=== PATIENT | female | born 1965 | race Caucasian/White ===

== ENCOUNTER 2017-04-11 01:36 | Emergency (ER) | payer BC ==
[2017-04-11] MEDS ORDERED: diphenhydrAMINE HCL 50 MG/ML VIAL IM ONE (02:23)
--- NOTE | 2017-04-11 02:23 | ERNOTE ---
Psychological HPI - Date Date of Service: 04/11/17 - General Chief Complaint: Anxiety Source: Reports: patient, family Exam Limitations: Reports: no limitations - Immun/Allergies/Home Medications Allergies/Adverse Reactions: Allergies Penicillins Allergy (Intermediate, Verified 05/25/16 09:47) Other topiramate Adverse Reaction (Mild, Verified 05/25/16 09:47) dizziness, fatigue Home Medications: HOME MEDICATIONS Acetaminophen [Tylenol] 650 mg PO PRN PRN 12/05/15 [Last Taken Unknown] Cholecalciferol (Vitamin D3) [Vitamin D-3] 1 unit PO DAILY 12/05/15 [Last Taken Unknown] Duloxetine HCl [Cymbalta] 60 mg PO BID 12/05/15 [Last Taken Unknown] Gabapentin 900 mg PO TID 12/05/15 [Last Taken Unknown] Levothyroxine Sodium [Synthroid] 50 mcg PO DAILY 12/05/15 [Last Taken Unknown] Omeprazole [Prilosec] 20 mg PO DAILY 12/05/15 [Last Taken Unknown] Simvastatin [Zocor] 40 mg PO HS 12/05/15 [Last Taken Unknown] glipiZIDE [Glipizide] 10 mg PO BID 12/05/15 [Last Taken Unknown] metFORMIN HCL [Glucophage] 1,000 mg PO BID 12/05/15 [Last Taken Unknown] Cyanocobalamin (Vitamin B-12) [B-12] 1,000 mcg PO DAILY 05/06/16 [Last Taken Unknown] Gluc Mistry/Chondro Mistry A/Vit C/Mn [Glucosamine Chondroitin Tab] 1 each PO Q2D [Last Taken Unknown] sitaGLIPtin PHOSPHATE [Januvia] 100 mg PO DAILY 05/06/16 [Last Taken Unknown] Meloxicam [Mobic] 15 mg PO DAILY 04/11/17 [Last Taken Unknown] Naltrexone HCl [ReVia] 1.5 mg PO DAILY 04/11/17 [Last Taken Unknown] - History of Present Illness Narrative: STATES SHE HAD A HEADACHE EARLIER AND THEN DEVELOPED AN ANXIETY ATTACK. SHE HAS A HX OF BOTH THOUGH NOT SEEN HERE RECENTLY FOR THESE PROBLEMS. NO HEAD TRAUMA. NO TRAUMA. SAYS IT STARTED AFTER GETTING READY FOR BED THOUGH HAD SOME HEADACHE TO BACK OF HEAD EARLIER. WENT TO BED ABOUT 2300 AND SHE CAME INTO HIM ABOUT 0130 AND SAID HER H.A. WAS WORSE " NOW ALL OVER HER HEAD FROM BACK TO FRONT". NO VOMITING. IS SORE TO OCCIPITAL AREA. SHE HAS NOT TAKEN ANYTHING FOR HER H.A. DENIES ANY REASON TO BE ANXIOUS THAT SHE IS AWARE OF. Time Seen by Provider: 04/11/17 02:08 Review of Systems - Review of Systems Constitutional: Present: See HPI EYE: Present: no symptoms reported ENT: Present: no symptoms reported Respiratory: Present: no symptoms reported Cardiology: Present: no symptoms reported Gastrointestinal/Abdominal: Present: no symptoms reported Genitourinary: Present: no symptoms reported Musculoskeletal: Present: See HPI, neck pain - POSTERIOR OCCIPITAL TENDERNESS. Skin: Present: no symptoms reported Neurological: Present: See HPI, anxiety, headache Hematologic/Lymphatic: Present: no symptoms reported Psych: Present: depressed All Other Systems: All systems neg except as marked - Patient's Past Medical History Patient History - Medical: Anxiety, Chronic Pain, Diabetes Type 2, Fibromyalgia , GERD, Hypothyroidism, Migraines, Osteoarthritis, Other Patient History - Cardiac/Respiratory: Hyperlipidemia Patient History - Cancer: No Hx of Cancer Patient History - Surgical Procedures: Appendectomy, Cholecystectomy, , Tubal Ligation, T & A Patient History - Other: None LMP (Calendar): 01/15/16 - Family History Father Family History - Medical: , No pertinent hx Family History - Cardiac/Respiratory: COPD Mother Family History - Medical: , Diabetes Type 2, Other Family History - Cardiac/Respiratory: Hyperlipidemia Brother Family History - Medical: No pertinent hx Family History - Cardiac/Respiratory: No pertinent hx - Social History Living Situations: spouse Abuse History: No History of abuse Psych History: Hx of Anxiety Smoking Status: Former smoker Alcohol Use: rarely Drug Use: none - Immunizations Immunizations Up to Date: Yes Hx Pneumococcal Vaccination: No History of Influenza Vaccine: Yes Physical Exam - Physical Exam General Appearance: Present: wd/wn, alert, anxious Eye Exam: Normal inspection: bilateral, PERRL: bilateral, EOMI: bilateral Ears, Nose, Throat: Present: normal ENT inspection Neck: Present: normal inspection, other - TENDERNESS TO PALPATION TO SUPERIOR POSTERIOR NECK TO LEFT > RIGHT. 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 . Absent: facial droop, motor weakness, disoriented to person, disoriented to time, disoriented to place, disoriented to situation DTR: N=norm/NB=norm/brisk/A=abs/DD=dull/dimin/HC=hyperactive: Tricep (R): Normal , Tricep (L): Normal, Knee (R): Normal, Knee (L): Normal Skin Exam: Present: normal color ED Progress - Vital Signs Vital Signs: Vital Signs 04/11/17 01:39 Temperature 36.9 C Pulse Rate 96 Respiratory 18 Rate Blood Pressure 124/78 O2 Sat by Pulse 98 Oximetry - Progress/Reassessment Chief Complaint: Anxiety Departure Clinical Impression: Anxiety Headache Qualifiers: Headache type: tension-type Headache chronicity pattern: acute headache Intractability: not intractable Qualified Code(s): G44.209 - Tension-type headache, unspecified, not intractable - Departure Disposition: Home self-care Instructions: Panic Attacks, [id number], Tension Headache, [id number] Additional Instructions: REST. TAKE YOUR MEDS DIRECTED. RECHECK WITH YOUR FAMILY TOMORROW IF NOT IMPROVING. Referrals: Felix Manzo DO [Primary Care Provider] -
--- OUTSIDE RECORDS SUMMARY | 2017-04-11 02:23 | XMS REPORT | Summary of Care ---
:1965 Author Organization [facility] Address [address] [place] [address] Care Team Providers Name Role Phone Manzo Felix Thrasher Primary Care Physician Encounter Date(s): 12/08/16 - 12/08/16 [facility] [address] [facility] [place], [place] [address] [place] Discharge Diagnosis: Cubital tunnel syndrome, bilateral Discharge Diagnosis: Bilateral carpal tunnel syndrome Discharge Disposition: 01 Discharged to Home or Self Care Attending Physician: Byron Gimenez MD Referring Physician: Byron Gimenez MD Vital Signs Most recent to oldest [Reference Range]: 1 Peripheral Pulse Rate [60-100 bpm] 89 bpm (12/08/16 2:06 PM) Blood Pressure [90-130/60-90 mmHg] 121/77mmHg (12/08/16 2:06 PM) Mean Arterial Pressure, Cuff 92 mmHg (12/08/16 2:06 PM) Most recent to oldest [Reference Range]: 1 Height/Length Measured 158 cm (12/08/16 2:06 PM) Weight Dosing 122.50 kg1 (12/08/16 2:08 PM) Weight Measured 122.5 kg (12/08/16 2:06 PM) BSA Measured 2.18 m2 (12/08/16 2:06 PM) Body Mass Index Measured 49.07 kg/m2 (12/08/16 2:06 PM) 1Result Comment: This result was because the dosing weight was either not entered or it is>30 days old. This result is based off: Weight Measured December 08, 2016 14:06:00 WHIZZER HAND by Becky J Familia, ELDER ASSISTANT Problem List Condition Effective Dates Status Health Status Informant Cubital tunnel syndrome, Active bilateral(Confirmed) Bilateral carpal tunnel Active syndrome(Confirmed) Fibromyalgia(Confirmed) Active Allergies, Adverse Reactions, Alerts Substance Reaction Severity Status penicillin Rash Moderate Active topiramate Nausea Moderate Active Dizzy Fatigue Medications DULoxetine 60 mg oral delayed release capsule 1 cap(s), Oral, BID, do not crush or chew, # 30 cap(s), 0 Refill(s), Start Date : 10/28/16 8:39:00 WHIZZER HAND Special Instructions: do not crush or chew Start Date: 10/28/16 Status: Orderedgabapentin 300 mg oral capsule 3 cap(s), Oral, TID, 0 Refill(s), Start Date: 10/28/16 8:41:00 WHIZZER HAND Start Date: 10/28/16 Status: OrderedglipiZIDE 10 mg oral tablet 1 tab(s), Oral, BID, # 30 tab(s), 0 Refill(s), Start Date: 10/28/16 8:43:00 WHIZZER HAND Start Date: 10/28/16 Status: OrderedJanuvia 100 mg oral tablet 1 tab(s), Oral, Daily, # 30 tab(s), 0 Refill(s), Start Date: 10/28/16 8:41:00 WHIZZER HAND Start Date: 10/28/16 Status: Orderedlevothyroxine 50 mcg (0.05 mg) oral tablet 1 tab(s), Oral, Daily, # 30 tab(s), 0 Refill(s), Start Date: 10/28/16 8:42:00 WHIZZER HAND Start Date: 10/28/16 Status: Orderedmeloxicam 15 mg oral tablet 1 tab(s), Oral, Daily, # 30 tab(s), 1 Refill(s), Start Date: 11/04/16 16:29:00 WHIZZER HAND, Pharmacy: [id number] Start Date: 11/04/16 Status: OrderedmetFORMIN 500 mg oral tablet, extended release 2 tab(s), Oral, BID, # 30 tab(s), 0 Refill(s), Start Date: 10/28/16 8:42:00 WHIZZER HAND Start Date: 10/28/16 Status: Orderedmometasone 0.1% topical ointment 1 mauri, Topical, Daily, PRN right hand and wrist eczema, # 15 gm, 0 Refill(s), Start Date: 10/28/16 8:41:00 WHIZZER HAND Start Date: 10/28/16 Status: Orderedmultivitamin 1 tab(s), Oral, Daily, 0 Refill(s), Start Date: 10/28/16 8:44:00 WHIZZER HAND Start Date: 10/28/16 Status: OrderedNaltrexone Naltrexone, 1.5 mg=, Oral, Daily, # 45 mg, 3 Refill(s), Pharmacy: [facility], Supply Start Date: 12/03/16 Status: OrderedNaltrexone Naltrexone, See Instructions, Take 0.5 mg daily for 7 days, then 1mg daily for 14 days, then 1.5 mg daily there after., # 31 mg, 0 Refill(s), Pharmacy: [facility], Supply Special Instructions: Take 0.5 mg daily for 7 days, then 1mg daily for 14 days, then 1.5 mg daily there after. Start Date: 11/04/16 Stop Date: 12/03/16 Status: Completedomeprazole 20 mg oral delayed release tablet 1 tab(s), Oral, HS, 0 Refill(s), Start Date: 10/28/16 8:44:00 WHIZZER HAND Start Date: 10/28/16 Status: OrderedONETOUCH DEDE ULTRA BL 0 Refill(s), Supply Start Date: 10/28/16 Status: Orderedsimvastatin 40 mg oral tablet 1 tab(s), Oral, HS, # 30 tab(s), 0 Refill(s), Start Date: 10/28/16 8:40:00 WHIZZER HAND Start Date: 10/28/16 Status: Orderedtolterodine 4 mg oral capsule, extended release 1 cap(s), Oral, Daily, # 30 cap(s), 0 Refill(s), Start Date: 10/28/16 8:40:00 WHIZZER HAND Start Date: 10/28/16 Status: OrderedtraZODone 50 mg oral tablet 1 tab(s), Oral, HS, # 30 tab(s), 0 Refill(s), Start Date: 10/28/16 8:41:00 WHIZZER HAND Start Date: 10/28/16 Status: OrderedTylenol 1,000 mg, Oral, BID, PRN pain moderate 4-7, 0 Refill(s), Start Date: 10/28/16 8: 44:00 WHIZZER HAND Start Date: 10/28/16 Status: OrderedVitamin B12 1000 mcg oral tablet 1 tab(s), Oral, Daily, # 30 tab(s), 0 Refill(s), Start Date: 10/28/16 8:45:00 WHIZZER HAND Start Date: 10/28/16 Status: Ordered Results No data available for this section Immunizations No data available for this section Procedures Procedure Date Related Diagnosis Body Site Colonoscopy 05/25/16 Appendectomy 1993 section 1992 Cholecystectomy 1991 section 1990 Social History No data available for this section Assessment and Plan No data available for this section
--- OUTSIDE RECORDS SUMMARY | 2017-04-11 02:23 | XMS REPORT | Summary of Care ---
:1965 Author Organization [facility] Address [address] [place] [address] Care Team Providers Name Role Phone Felix Manzo Primary Care Physician Encounter Date(s): 11/23/16 - 11/23/16 [facility] Maria Elena Ramos, [address] [place], [place] [address] Discharge Disposition: 01 Discharged to Home or Self Care Attending Physician: Luciano Llanos MD Vital Signs No data available for this section Problem List Condition Effective Dates Status Health Status Informant Fibromyalgia(Confirmed) Active Allergies, Adverse Reactions, Alerts Substance Reaction Severity Status penicillin Rash Active topiramate Dizzy Active Fatigue Medications DULoxetine 60 mg oral delayed release capsule 1 cap(s), Oral, BID, do not crush or chew, # 30 cap(s), 0 Refill(s), Start Date : 10/28/16 8:39:00 HYDROELECTRIC PRODUCTION TECHNICIAN Start Date: 10/28/16 Status: Orderedgabapentin 300 mg oral capsule 3 cap(s), Oral, TID, 0 Refill(s), Start Date: 10/28/16 8:41:00 HYDROELECTRIC PRODUCTION TECHNICIAN Start Date: 10/28/16 Status: OrderedglipiZIDE 10 mg oral tablet 1 tab(s), Oral, BID, # 30 tab(s), 0 Refill(s), Start Date: 10/28/16 8:43:00 HYDROELECTRIC PRODUCTION TECHNICIAN Start Date: 10/28/16 Status: OrderedJanuvia 100 mg oral tablet 1 tab(s), Oral, Daily, # 30 tab(s), 0 Refill(s), Start Date: 10/28/16 8:41:00 HYDROELECTRIC PRODUCTION TECHNICIAN Start Date: 10/28/16 Status: Orderedlevothyroxine 50 mcg (0.05 mg) oral tablet 1 tab(s), Oral, Daily, # 30 tab(s), 0 Refill(s), Start Date: 10/28/16 8:42:00 HYDROELECTRIC PRODUCTION TECHNICIAN Start Date: 10/28/16 Status: Orderedmeloxicam 15 mg oral tablet 1 tab(s), Oral, Daily, # 30 tab(s), 1 Refill(s), Start Date: 11/04/16 16:29:00 HYDROELECTRIC PRODUCTION TECHNICIAN, Pharmacy: [id number] Start Date: 11/04/16 Status: OrderedmetFORMIN 500 mg oral tablet, extended release 2 tab(s), Oral, BID, # 30 tab(s), 0 Refill(s), Start Date: 10/28/16 8:42:00 HYDROELECTRIC PRODUCTION TECHNICIAN Start Date: 10/28/16 Status: Orderedmometasone 0.1% topical ointment 1 mauri, Topical, Daily, # 15 gm, 0 Refill(s), Start Date: 10/28/16 8:41:00 HYDROELECTRIC PRODUCTION TECHNICIAN Start Date: 10/28/16 Status: Orderedmultivitamin 1 tab(s), Oral, Daily, 0 Refill(s), Start Date: 10/28/16 8:44:00 HYDROELECTRIC PRODUCTION TECHNICIAN Start Date: 10/28/16 Status: OrderedNaltrexone Naltrexone, See Instructions, Take 0.5 mg daily for 7 days, then 1mg daily for 14 days, then 1.5 mg daily there after., # 31 mg, 0 Refill(s), Pharmacy: [facility], Supply Start Date: 11/04/16 Status: Orderedomeprazole 20 mg oral delayed release tablet 1 tab(s), Oral, Daily, 0 Refill(s), Start Date: 10/28/16 8:44:00 HYDROELECTRIC PRODUCTION TECHNICIAN Start Date: 10/28/16 Status: OrderedONETOUCH DEDE ULTRA BL 0 Refill(s), Supply Start Date: 10/28/16 Status: Orderedsimvastatin 40 mg oral tablet 1 tab(s), Oral, HS, # 30 tab(s), 0 Refill(s), Start Date: 10/28/16 8:40:00 HYDROELECTRIC PRODUCTION TECHNICIAN Start Date: 10/28/16 Status: Orderedtolterodine 4 mg oral capsule, extended release 1 cap(s), Oral, Daily, # 30 cap(s), 0 Refill(s), Start Date: 10/28/16 8:40:00 HYDROELECTRIC PRODUCTION TECHNICIAN Start Date: 10/28/16 Status: OrderedtraZODone 50 mg oral tablet 1 tab(s), Oral, HS, # 30 tab(s), 0 Refill(s), Start Date: 10/28/16 8:41:00 HYDROELECTRIC PRODUCTION TECHNICIAN Start Date: 10/28/16 Status: OrderedTylenol Oral, PRN pain moderate 4-7, 0 Refill(s), Start Date: 10/28/16 8:44:00 HYDROELECTRIC PRODUCTION TECHNICIAN Start Date: 10/28/16 Status: OrderedVitamin B12 1000 mcg oral tablet 1 tab(s), Oral, Daily, # 30 tab(s), 0 Refill(s), Start Date: 10/28/16 8:45:00 HYDROELECTRIC PRODUCTION TECHNICIAN Start Date: 10/28/16 Status: Ordered Results No data available for this section Immunizations No data available for this section Procedures Procedure Date Related Diagnosis Body Site Colonoscopy 05/25/16 Appendectomy 1993 section 1992 Cholecystectomy 1991 section 1990 Social History No data available for this section Assessment and Plan No data available for this section
--- OUTSIDE RECORDS SUMMARY | 2017-04-11 02:23 | XMS REPORT | Continuity of Care Document ---
:1965 Author Organization [facility] ([facility]) Address [address] [place] [address] Phone [phone] Care Team Providers Name Role Phone Alis Carlos Primary Care Provider [phone] Source Comments This disclosure is being made pursuant to the Care Everywhere program, applicable federal and state laws, and may not contain all informaitonavailable regarding this patient.[facility] ([facility]) Active Allergies and Adverse Reactions Allergen Noted Date Severity Reactions Comments Penicillins 06/07/2013 Urticaria (Hives) ITCHY LIPS Current Medications Prescription Sig. Disp. Refills Start End Date Status Date DULoxetine Take 60 mg by Active (CYMBALTA) 60 mg mouth 2 times capsule daily. metFORMIN 1,000 mg Take 1,000 mg by Active tablet mouth 2 times daily with meals. simvastatin 20 mg Take 20 mg by Active tablet mouth every evening. LEVOTHYROXINE SODIUM Take 1 Tab by Active (SYNTHROID PO) mouth daily. cyanocobalamin, Take 1 Tab by Active vitamin B-12, 1,500 mouth daily. mcg TbDL cholecalciferol Take 2,000 Units Active (VITAMIN D3) 2,000 by mouth daily. unit capsule promethazine 25 mg insert 1 60 Suppository 1 Active suppository Suppository 3 rectally every 8 hours as needed. Indications: nausea/vomiting SUPPLY blood glucose by In Vitro route 1 Each 0 Active (BLOOD GLUCOSE daily. 3 MONITOR KIT) meter Indications: TYPE 2 DIABETES MELLITUS SUPPLY ONE TOUCH daily. Non-Insulin 50 Strip Active ULTRA test strips Dependent 3 Indications: TYPE 2 DIABETES MELLITUS SUPPLY ONE TOUCH take as directed 100 Each Active DELICA lancets daily. Non-Insulin 3 Dependent Indications: TYPE 2 DIABETES MELLITUS glipiZIDE 5 mg Take 1 Tab by 60 Tab 11 Active tablet mouth 2 times 3 daily with meals. Indications: TYPE 2 DIABETES MELLITUS lidocaine 5 % patch Apply 1 patch on Patch Active the skin daily. 4 Apply for 12 hours and remove for 12 hours, then repeat cycle. Indications: neck pain, mylagia omeprazole 20 mg Take 1 Cap by 90 Cap 11 Active extended release mouth daily. 4 capsule Indications: HEARTBURN tolterodine (DETROL Take 1 Cap by 30 Cap 11 Active LA) 2 mg XR capsule mouth daily. 4 Indications: BLADDER HYPERACTIVITY ferrous gluconate Take 1 Tab by 60 Tab 11 Active 324 mg (38 mg iron) mouth 2 times 4 tablet daily. Indications: IRON DEFICIENCY ANEMIA ascorbic acid Take 1 Tab by 60 Tab 11 Active (VITAMIN C) 250 mg mouth 2 times 4 tablet daily. With iron tabs Indications: iron deficiency nabumetone 500 mg Take 1 Tab by 60 Tab 11 Active tablet mouth 2 times 4 daily as needed. Indications: headaches gabapentin 300 mg Take 1 Cap (300 mg 90 Cap 1 Active capsule total) by mouth 3 5 times daily For 900 mg TID. Appointment needed. gabapentin 600 mg Take 1 Tab (600 mg 90 Tab 1 Active tablet total) by mouth 3 5 times daily Along with 300 mg dose for 900 mg TID. Appointment required Active Problems Problem Noted Date Iron deficiency anemia 09/06/2014 Paresthesia of both legs 04/26/2014 Elevated blood pressure 10/27/2013 Fatigue 10/26/2013 Headache(784.0) 10/26/2013 Excessive sleepiness 10/26/2013 Snoring 10/26/2013 Overview: Local sleep study negative for NICOLÁS but no REM captured. Had increased periodic leg movements Tension headache 08/02/2013 Diarrhea 08/02/2013 Heart burn 08/02/2013 Fibromyalgia 06/07/2013 DM type 2 (diabetes mellitus, type 2) 06/07/2013 Vitamin D deficiency 06/07/2013 Overview: Negative celiac testing Hypothyroidism 06/07/2013 Obesity 06/07/2013 Social History Tobacco Use Types Packs/Day Years Used Date Former Smoker Cigarettes 1 20 Quit: 06/07/2005 Smokeless Tobacco: Never Used Last Filed Vital Signs Vital Sign Reading Time Taken Blood Pressure 127/82 08/27/2014 4:09 PM CDT Pulse 92 08/27/2014 4:09 PM CDT Temperature 37 C (98.6 F) 08/27/2014 4:09 PM CDT Respiratory Rate 16 08/27/2014 4:09 PM CDT Height 1.613 m (5' 3.5") 11/14/2013 6:36 PM 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 Weight 102.241 kg (225 lb 6.4 oz) 08/27/2014 4:09 PM CDT Body Mass Index 39.3 08/27/2014 4:09 PM CDT Oxygen Saturation - - Plan of Care Patient Goal Type Goal Lifestyle Increase physical activity Health Maintenance Due Date Last Done Comments Hepatitis B Vaccine (1 of 3 - Primary 1965 Series) Tdap Vaccine 1976 MMR Vaccine 1983 Td Vaccine 1983 Pneumococcal Vaccine (1 of 1 - 1984 PPSV23) Cervical Cancer Screening 1995 Mammogram 2005 DIABETIC: Retinal Eye Exam 06/07/2013 DIABETIC: Cholesterol 10/26/2014 10/26/2013 DIABETIC: Foot Exam 10/26/2014 10/26/2013, 10/26/2013 Diabetic: Hdl 10/26/2014 10/26/2013 DIABETIC: Hemoglobin A1C 10/26/2014 04/26/2014, 10/26/2013, 06/07/2013 Diabetic: Ldl 10/26/2014 10/26/2013 DIABETIC: Triglycerides 10/26/2014 10/26/2013 DIABETIC: Microalbumin 04/26/2015 04/26/2014 Colonoscopy 2015 Influenza Vaccine: Seasonal (#1) 06/08/2016 HCV Screening Completed 06/07/2013 Results from Last 3 Months Not on file
--- OUTSIDE RECORDS SUMMARY | 2017-04-11 02:23 | XMS REPORT | Summary of Care ---
:1965 Author Organization [facility] Address [address] [place] [address] Care Team Providers Name Role Phone Felix Manzo Price Primary Care Physician Encounter Date(s): 12/22/16 - 12/22/16 [facility] [address] [address] [facility] [place], [place] [address] Discharge Diagnosis: Aftercare following surgery of the musculoskeletal system Discharge Disposition: 01 Discharged to Home or Self Care Attending Physician: SOBIA Urrutia Referring Physician: Byron Gimenez MD Vital Signs Most recent to oldest [Reference Range]: 1 Peripheral Pulse Rate [60-100 bpm] 91 bpm (12/22/16 12:58 PM) Blood Pressure [90-130/60-90 mmHg] 132/82mmHg *HI* (12/22/16 12:58 PM) Mean Arterial Pressure, Cuff 99 mmHg (12/22/16 12:58 PM) Most recent to oldest [Reference Range]: 1 Height/Length Estimated 162 cm (12/22/16 12:58 PM) Weight Estimated 101.2 kg (12/22/16 12:58 PM) BSA Estimated 2.13 m2 (12/22/16 12:58 PM) Body Mass Index Estimated 38.56 kg/m2 (12/22/16 12:58 PM) Problem List Condition Effective Dates Status Health [...] 0 Refill(s), Start Date : 10/28/16 8:39:00 EDITORIAL CLERK Special Instructions: do not crush or chew Start Date: 10/28/16 Status: Orderedgabapentin 300 mg oral capsule 3 cap(s), Oral, TID, 0 Refill(s), Start Date: 10/28/16 8:41:00 EDITORIAL CLERK Start Date: 10/28/16 Status: OrderedglipiZIDE 10 mg oral tablet 1 tab(s), Oral, BID, # 30 tab(s), 0 Refill(s), Start Date: 10/28/16 8:43:00 EDITORIAL CLERK Start Date: 10/28/16 Status: OrderedJanuvia 100 mg oral tablet 1 tab(s), Oral, Daily, # 30 tab(s), 0 Refill(s), Start Date: 10/28/16 8:41:00 EDITORIAL CLERK Start Date: 10/28/16 Status: Orderedlevothyroxine 50 mcg (0.05 mg) oral tablet 1 tab(s), Oral, Daily, # 30 tab(s), 0 Refill(s), Start Date: 10/28/16 8:42:00 EDITORIAL CLERK Start Date: 10/28/16 Status: Orderedmeloxicam 15 mg oral tablet 1 tab(s), Oral, Daily, # 30 tab(s), 1 Refill(s), Start Date: 11/04/16 16:29:00 EDITORIAL CLERK, Pharmacy: [id number] Start Date: 11/04/16 Status: OrderedmetFORMIN 500 mg oral tablet, extended release 2 tab(s), Oral, BID, # 30 tab(s), 0 Refill(s), Start Date: 10/28/16 8:42:00 EDITORIAL CLERK Start Date: 10/28/16 Status: Orderedmometasone 0.1% topical ointment 1 mauri, Topical, Daily, PRN right hand and wrist eczema, # 15 gm, 0 Refill(s), Start Date: 10/28/16 8:41:00 EDITORIAL CLERK Start Date: 10/28/16 Status: Orderedmultivitamin 1 tab(s), Oral, Daily, 0 Refill(s), Start Date: 10/28/16 8:44:00 EDITORIAL CLERK Start Date: 10/28/16 Status: OrderedNaltrexone Naltrexone, 1.5 mg=, Oral, Daily, # 45 mg, 3 Refill(s), Pharmacy: [facility], Supply Start Date: 12/03/16 Status: OrderedNaltrexone Naltrexone, See Instructions, Take 0.5 mg daily for 7 days, then 1mg daily for 14 days, then 1.5 mg daily there after., # 31 mg, 0 Refill(s), Pharmacy: [facility], Supply Special Instructions: Take 0.5 mg daily for 7 days, then 1mg daily for 14 days, then 1.5 mg daily there after. Start Date: 11/04/16 Stop Date: 12/03/16 Status: CompletedNorco 5 mg-325 mg oral tablet See Instructions, 1-2 tablets every 4-6 hours, not to exceed 8 tablets/day, # 30 tab(s), 0 Refill(s), Start Date: 12/10/16 7:41:00 EDITORIAL CLERK, Pharmacy: [id number] Special Instructions: 1-2 tablets every 4-6 hours, not to exceed 8 tablets/day Start Date: 12/10/16 Status: Orderedomeprazole 20 mg oral delayed release tablet 1 tab(s), Oral, HS, 0 Refill(s), Start Date: 10/28/16 8:44:00 EDITORIAL CLERK Start Date: 10/28/16 Status: OrderedONETOUCH DEDE ULTRA BL 0 Refill(s), Supply Start Date: 10/28/16 Status: Orderedsimvastatin 40 mg oral tablet 1 tab(s), Oral, HS, # 30 tab(s), 0 Refill(s), Start Date: 10/28/16 8:40:00 EDITORIAL CLERK Start Date: 10/28/16 Status: Orderedtolterodine 4 mg oral capsule, extended release 1 cap(s), Oral, Daily, # 30 cap(s), 0 Refill(s), Start Date: 10/28/16 8:40:00 EDITORIAL CLERK Start Date: 10/28/16 Status: OrderedtraZODone 50 mg oral tablet 1 tab(s), Oral, HS, # 30 tab(s), 0 Refill(s), Start Date: 10/28/16 8:41:00 EDITORIAL CLERK Start Date: 10/28/16 Status: OrderedTylenol 1,000 mg, Oral, BID, PRN pain moderate 4-7, 0 Refill(s), Start Date: 10/28/16 8: 44:00 EDITORIAL CLERK Start Date: 10/28/16 Status: OrderedVitamin B12 1000 mcg oral tablet 1 tab(s), Oral, Daily, # 30 tab(s), 0 Refill(s), Start Date: 10/28/16 8:45:00 EDITORIAL CLERK Start Date: 10/28/16 Status: OrderedZofran 4 mg oral tablet 1 tab(s), Oral, q8hr interval, PRN as needed for nausea/vomiting, # 60 tab(s), 0 Refill(s), Start Date: 12/10/16 7:41:00 EDITORIAL CLERK, Pharmacy: [id number] Start Date: 12/10/16 Status: Ordered Results No data available for this section Immunizations No data available for this section Procedures Procedure Date Related Diagnosis Body Site Release Carpal Tunnel (Right, Wrist R)1 12/10/16 Colonoscopy 05/25/16 Appendectomy 1993 section 1992 Cholecystectomy 1991 section 1990 1auto-populated from documented surgical case Social History No data available for this section Assessment and Plan No data available for this section
--- OUTSIDE RECORDS SUMMARY | 2017-04-11 02:23 | XMS REPORT | Summary of Care ---
:1965 Author Organization [facility] Address [address] [place] [id number]- Care Team Providers Name Role Phone Manzo Felix Thrasher Primary Care Physician Encounter Date(s): 12/10/16 - 12/10/16 [facility] [address] [place] [id number]- [facility] Discharge Disposition: 01 Discharged to Home or Self Care Attending Physician: Byron Gimenez MD Admitting Physician: Byron Gimenez MD Vital Signs Most recent to oldest [Reference 1 2 3 Range]: Temperature Temporal Artery [36-38 37.2 DegC DegC] (12/10/16 7:45 AM) Temperature Temporal Artery 37.6 DegC [36.0-38.0 DegC] (12/10/16 5:50 AM) Peripheral Pulse Rate [60-100 bpm] 87 bpm 92 bpm (12/10/16 8:00 AM) (12/10/16 7:45 AM) Heart Rate Monitored [60-100 bpm] 97 bpm (12/10/16 5:50 AM) Respiratory Rate [12-20 br/min] 16 br/min 16 br/min 18 br/min (12/10/16 8:00 AM) (12/10/16 7:45 AM) (12/10/16 5:50 AM) SpO2 96 % 95 % 94 % (12/10/16 8:00 AM) (12/10/16 7:45 AM) (12/10/16 5:50 AM) Blood Pressure [90-130/60-90 mmHg] 124/72mmHg 128/53mmHg 134/89mmHg (12/10/16 8:00 AM) (12/10/16 7:45 AM) *HI* (12/10/16 5:50 AM) Most recent to oldest [Reference Range]: 1 2 3 Height/Length Measured 162 cm (12/10/16 5:50 AM) Height/Length Estimated 162.56 cm 162.56 cm (12/10/16 5:50 AM) (12/08/16 3:12 PM) Weight Estimated 100 kg 100 kg (12/10/16 5:50 AM) (12/08/16 3:12 PM) Weight Dosing 101.2 kg (12/10/16 5:50 AM) Weight Measured 101.2 kg (12/10/16 5:50 AM) BSA Measured 2.04 m2 (12/10/16 5:50 AM) BSA Estimated 2.12 m2 (12/10/16 5:50 AM) Body Mass Index Measured 38.56 kg/m2 (12/10/16 5:50 AM) Body Mass Index Estimated 37.84 kg/m2 (12/10/16 5:50 AM) Problem List Condition Effective Dates Status Health [...] 0 Refill(s), Start Date : 10/28/16 8:39:00 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 Special Instructions: do not crush or chew Start Date: 10/28/16 Status: Orderedgabapentin 300 mg oral capsule 3 cap(s), Oral, TID, 0 Refill(s), Start Date: 10/28/16 8:41:00 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 Start Date: 10/28/16 Status: OrderedglipiZIDE 10 mg oral tablet 1 tab(s), Oral, BID, # 30 tab(s), 0 Refill(s), Start Date: 10/28/16 8:43:00 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 Start Date: 10/28/16 Status: OrderedJanuvia 100 mg oral tablet 1 tab(s), Oral, Daily, # 30 tab(s), 0 Refill(s), Start Date: 10/28/16 8:41:00 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 Start Date: 10/28/16 Status: Orderedlevothyroxine 50 mcg (0.05 mg) oral tablet 1 tab(s), Oral, Daily, # 30 tab(s), 0 Refill(s), Start Date: 10/28/16 8:42:00 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 Start Date: 10/28/16 Status: Orderedmeloxicam 15 mg oral tablet 1 tab(s), Oral, Daily, # 30 tab(s), 1 Refill(s), Start Date: 11/04/16 16:29:00 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, Pharmacy: [id number] Start Date: 11/04/16 Status: OrderedmetFORMIN 500 mg oral tablet, extended release 2 tab(s), Oral, BID, # 30 tab(s), 0 Refill(s), Start Date: 10/28/16 8:42:00 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 Start Date: 10/28/16 Status: Orderedmometasone 0.1% topical ointment 1 mauri, Topical, Daily, PRN right hand and wrist eczema, # 15 gm, 0 Refill(s), Start Date: 10/28/16 8:41:00 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 Start Date: 10/28/16 Status: Orderedmultivitamin 1 tab(s), Oral, Daily, 0 Refill(s), Start Date: 10/28/16 8:44:00 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 Start Date: 10/28/16 Status: OrderedNaltrexone Naltrexone, 1.5 mg=, Oral, Daily, # 45 mg, 3 Refill(s), Pharmacy: [id number], Supply Start Date: 12/03/16 Status: OrderedNaltrexone Naltrexone, See Instructions, Take 0.5 mg daily for 7 days, then 1mg daily for 14 days, then 1.5 mg daily there after., # 31 mg, 0 Refill(s), Pharmacy: [facility], Supply Special Instructions: Take 0.5 mg daily for 7 days, then 1mg daily for 14 days, then 1.5 mg daily there after. Start Date: 11/04/16 Stop Date: 12/03/16 Status: CompletedNorco 5 mg-325 mg oral tablet See Instructions, 1-2 tablets every 4-6 hours, not to exceed 8 tablets/day, # 30 tab(s), 0 Refill(s), Start Date: 12/10/16 7:41:00 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, Pharmacy: [id number] Special Instructions: 1-2 tablets every 4-6 hours, not to exceed 8 tablets/day Start Date: 12/10/16 Status: Orderedomeprazole 20 mg oral delayed release tablet 1 tab(s), Oral, HS, 0 Refill(s), Start Date: 10/28/16 8:44:00 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 Start Date: 10/28/16 Status: OrderedONETOUCH DEDE ULTRA BL 0 Refill(s), Supply Start Date: 10/28/16 Status: Orderedsimvastatin 40 mg oral tablet 1 tab(s), Oral, HS, # 30 tab(s), 0 Refill(s), Start Date: 10/28/16 8:40:00 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 Start Date: 10/28/16 Status: Orderedtolterodine 4 mg oral capsule, extended release 1 cap(s), Oral, Daily, # 30 cap(s), 0 Refill(s), Start Date: 10/28/16 8:40:00 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 Start Date: 10/28/16 Status: OrderedtraZODone 50 mg oral tablet 1 tab(s), Oral, HS, # 30 tab(s), 0 Refill(s), Start Date: 10/28/16 8:41:00 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 Start Date: 10/28/16 Status: OrderedTylenol 1,000 mg, Oral, BID, PRN pain moderate 4-7, 0 Refill(s), Start Date: 10/28/16 8: 44:00 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 Start Date: 10/28/16 Status: OrderedVitamin B12 1000 mcg oral tablet 1 tab(s), Oral, Daily, # 30 tab(s), 0 Refill(s), Start Date: 10/28/16 8:45:00 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 Start Date: 10/28/16 Status: OrderedZofran 4 mg oral tablet 1 tab(s), Oral, q8hr interval, PRN as needed for nausea/vomiting, # 60 tab(s), 0 Refill(s), Start Date: 12/10/16 7:41:00 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, Pharmacy: [id number] Start Date: 12/10/16 Status: Ordered Results Patient Viewable Results Most recent to oldest [Reference 1 2 3 Range]: AN - Fi O2 22 % % 23 % % 28 % % (12/10/16 7:35 AM) (12/10/16 7:30 AM) (12/10/16 7:25 AM) Estimated Creatinine Clearance 112.79 mL/min (12/10/16 5:56 AM) Whole Blood Glucose [70-108 mg/dL] 115 mg/dL1 *HI* (12/10/16 6:14 AM) 1Result 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
[2017-04-11] MEDS ORDERED: PROCHLORPERAZINE EDISYLATE 5 MG/ML VIAL IM ONE (02:24)
[2017-04-11] MEDS ORDERED: PROCHLORPERAZINE EDISYLATE 5 MG/ML VIAL ONE (02:27)
[2017-04-11] MEDS ORDERED: diphenhydrAMINE HCL 50 MG/ML VIAL ONE (02:27)
[2017-04-11 03:04] VITALS: BP 110/70
== END 2017-04-11 03:00 | disposition home or self-care (01) ==
LOC: ER 01:36
DX: G44.209 Tension-type headache, unspecified, not intractable (principal); F41.9 Anxiety disorder, unspecified; E11.9 Type 2 diabetes mellitus without complications; E03.9 Hypothyroidism, unspecified; E78.5 Hyperlipidemia, unspecified; M19.90 Unspecified osteoarthritis, unspecified site; M79.7 Fibromyalgia; K21.9 Gastro-esophageal reflux disease without esophagitis; Z87.891 Personal history of nicotine dependence

== ENCOUNTER 2017-05-31 06:35 | Emergency (ER) | payer BC ==
--- NOTE | 2017-05-31 07:10 | ERNOTE ---
Upper Extremity HPI - Narrative Date of Service: 05/31/17 - General Extremities Pain Location: shoulder: right Time Seen by Provider: 05/31/17 06:51 Source: patient, family Exam Limitations: no limitations - Immun/Allergies/Home Medications Immunizations: IMMUNIZATION HX Immunizations Up to Date Yes History of Influenza Vaccine Yes Hx Pneumococcal Vaccination Yes Allergies/Adverse Reactions: Allergies Allergy/AdvReac Type Severity Reaction Status Date / Time Penicillins Allergy Intermediate Other Verified 05/31/17 06:45 topiramate AdvReac Mild Verified 05/31/17 06:45 Home Medications: HOME MEDICATIONS Acetaminophen [Tylenol] 650 mg PO PRN PRN 12/05/15 [Last Taken Unknown] Cholecalciferol (Vitamin D3) [Vitamin D-3] 1 unit PO DAILY 12/05/15 [Last Taken Unknown] Duloxetine HCl [Cymbalta] 60 mg PO BID 12/05/15 [Last Taken Unknown] Gabapentin 900 mg PO DAILY 12/05/15 [Last Taken Unknown] Levothyroxine Sodium [Synthroid] 50 mcg PO DAILY 12/05/15 [Last Taken Unknown] Omeprazole [Prilosec] 20 mg PO DAILY 12/05/15 [Last Taken Unknown] Simvastatin [Zocor] 40 mg PO HS 12/05/15 [Last Taken Unknown] glipiZIDE [Glipizide] 10 mg PO BID 12/05/15 [Last Taken Unknown] metFORMIN HCL [Glucophage] 1,000 mg PO BID 12/05/15 [Last Taken Unknown] Cyanocobalamin (Vitamin B-12) [B-12] 1,000 mcg PO DAILY 05/06/16 [Last Taken Unknown] Gluc Mistry/Chondro Mistry A/Vit C/Mn [Glucosamine Chondroitin Tab] 1 each PO Q2D [Last Taken Unknown] sitaGLIPtin PHOSPHATE [Januvia] 100 mg PO DAILY 05/06/16 [Last Taken Unknown] Naltrexone HCl [ReVia] 4.5 mg PO DAILY 04/11/17 [Last Taken Unknown] Alprazolam 2 mg PO PRN PRN 05/31/17 [Last Taken Unknown] Celecoxib [Celebrex] 200 mg PO DAILY 05/31/17 [Last Taken Unknown] oxyCODONE HCL [Oxycodone] 10 mg PO PRN PRN 05/31/17 [Last Taken Unknown] rOPINIRole HCL [Requip] 3 mg PO DAILY 05/31/17 [Last Taken Unknown] - History of Present Illness Narrative: This is a 51-year-old female with a history of fibromyalgia for which she takes naltrexone. The patient comes to the emergency department complaining of right shoulder pain which started when she woke up Wednesday. The patient denies any injury or movements which may have caused this. She usually sleeps on her right side. She is right-hand dominant. The patient says that when she woke up Wednesday she was having a dull aching in her right shoulder which over the next 3 or 4 hours became very sharp and acute. Now she has increased pain when she looks to shoulder hanging and with any range of motion to the shoulder. The patient denies any shortness of breath she denies any overt chest pain although she says occasionally she gets "twinges" of the pain across the right side of her chest. This does not get worse when she walks. She has never had similar symptoms in the past. The medicine does not seem to be helping. She does have a prescription for oxycodone at home which her doctor gave her on Wednesday. She has not been using it. Occurred: other Location of Incident: other - Wednesday Severity: severe Method of Injury: Reports: unknown, other - unknown Reason for Fall: Denies: unknown, fainted, lightheaded, lost balance, slipped, tripped, other Modifying Factors - (Improves): Reports: cold therapy, immobilization Modifying Factors - (Worsens): Reports: jarring, movement Associated Symptoms: Denies: tingling, weakness, numbness distally, loss of feeling Other Injuries: Reports: none Prior Treament: Denies: treated by physician, similar symptoms before, currently on antibiotics Review of Systems - Review of Systems Constitutional: Present: no symptoms reported EYE: Present: no symptoms reported ENT: Present: no symptoms reported Respiratory: Present: no symptoms reported Cardiology: Present: no symptoms reported Gastrointestinal/Abdominal: Present: no symptoms reported Genitourinary: Present: no symptoms reported Musculoskeletal: Present: See HPI, joint pain Skin: Present: no symptoms reported Neurological: Present: no symptoms reported Endocrine: Present: no symptoms reported Hematologic/Lymphatic: Present: no symptoms reported Psych: Present: no symptoms reported All Other Systems: All systems neg except as marked - Patient's Past Medical History Patient History - Medical: Anxiety, Chronic Pain, Diabetes Type 2, Fibromyalgia , GERD, Hypothyroidism, Migraines, Osteoarthritis, Other Patient History - Cardiac/Respiratory: Hyperlipidemia Patient History - Cancer: No Hx of Cancer Patient History - Surgical Procedures: Appendectomy, Cholecystectomy, , Tubal Ligation, T & A Patient History - Other: None LMP (females 10-50): 2 years ago LMP (Calendar): 01/15/16 - Family History Father Family History - Medical: , No pertinent hx Family History - Cardiac/Respiratory: COPD Mother Family History - Medical: , Diabetes Type 2, Other Family History - Cardiac/Respiratory: Hyperlipidemia Brother Family History - Medical: No pertinent hx Family History - Cardiac/Respiratory: No pertinent hx - Social History Living Situations: home Abuse History: No History of abuse Psych History: Hx of Anxiety Smoking Status: Former smoker Alcohol Use: rarely Drug Use: none - Immunizations Immunizations Up to Date: Yes Hx Pneumococcal Vaccination: Yes History of Influenza Vaccine: Yes Physical Exam - Physical Exam General Appearance: Present: wd/wn, alert, other - patient is tearful Head Exam: Present: normal inspection, no evidence of injury Eye Exam: Normal inspection: bilateral, PERRL: bilateral, EOMI: bilateral Ears, Nose, Throat: Present: normal ENT inspection Neck: Present: normal inspection, nontender Respiratory: Present: no respiratory distress, normal breath sounds, no accessory muscle use, chest nontender, lungs clear Cardiovascular/Chest: Present: regular rate, rhythm, no murmur, normal peripheral pulses Gastrointestinal/Abdominal: Present: normal bowel sounds, nontender, soft Rectal Exam: Absent: heme negative stool - patient has multiple tender points throughout her entire axial skeleton. Even the most gentle contact causes her to flinch in pain Back Exam: Present: normal inspection, no CVA tenderness, other Extremity Exam: Present: normal inspection, no edema, other - patient has exquisite muscular tenderness in both arms, shoulders, base of the neck. Even the gentlest contact causes her to cry out in pain Neurological Exam: Present: alert, oriented, normal mood/affect, no motor/ sensory deficits Skin Exam: Present: normal color, warm/dry Lymphatic Exam: Present: no adenopathy ED Progress - Vital Signs Patient's Vital Signs:: I have reviewed the patient's vital signs. Vital Signs: Vital Signs 05/31/17 06:37 Temperature 36.5 C Pulse Rate 77 Respiratory 16 Rate Blood Pressure 127/56 O2 Sat by Pulse 100 Oximetry - EKG EKG: NSR EKG read: Interp. by me EKG Comments: EKG demonstrates normal sinus rhythm at 81 normal axis normal intervals and T- wave flattening especially laterally. Significant artifact in precordial leads. No ST segment changes. - X-Ray X-Ray #1 X-Ray: shoulder Interpretation: Interp. by me X-ray Comments: Patient has sesamoids present. No acute fracture or dislocation is identified. - Progress/Reassessment Chief Complaint: Shoulder Injury/Pain Plan - Plan Plan: The patient was placed in a sling for the right arm. I spent a great deal of time discussing with them my suspicion that this represents a strain or tear of the rotator cuff. The patient is going to call her primary care doctor today and ask for a referral to an orthopedist. She is aware may take a couple of weeks. She is going to use the oxycodone that she has at home and stop with the naltrexone. If she develops increased pain, shortness of breath, vomiting, fever, any new worrisome symptoms she will return to the ER. Otherwise follow up with the orthopedist Departure Clinical Impression: Rotator cuff (capsule) sprain - Departure Disposition: Home self-care Condition: Stable Instructions: Rotator Cuff Tendinitis Additional Instructions: As we discussed, the x-ray and EKG did not demonstrate a definite cause for her symptoms. I suspect you have irritated or torn rotator cuff. Continue to take ibuprofen, you can take 3 pills (that is 600 mg) at a time. Take this every 6 hours. Take the oxycodone that your doctor has prescribed. Do not take naltrexone. Call your family doctor today, tell them you were seen in the ER in the ER doctor recommends he get referred to an orthopedist. Call the orthopedist and set up an appointment. Be aware that it will likely take 1-2 weeks. If you continue having pain when it's time to see him then go on in. If her pain has gotten better you can elect not to see him or you can elect to see him. Return to the ER for new or worrisome symptoms Referrals: Felix Manzo, [Primary Care Provider] -
[2017-05-31] MEDS ORDERED: HYDROcodone/ACETAMINOPHEN 1 EACH TABLET PO ONE (07:12)
[2017-05-31] MEDS ORDERED: IBUPROFEN 600 MG TABLET PO ONE (07:12)
[2017-05-31] MEDS ORDERED: IBUPROFEN 600 MG TABLET ONE (07:13)
[2017-05-31] MEDS ORDERED: HYDROcodone/ACETAMINOPHEN 1 EACH TABLET ONE (07:13)
[2017-05-31 07:58] VITALS: BP 132/58
== END 2017-05-31 07:58 | disposition home or self-care (01) ==
LOC: ER 06:35
DX: S43.421A Sprain of right rotator cuff capsule, initial encounter (principal); M79.7 Fibromyalgia; Z79.899 Other long term (current) drug therapy; Z87.891 Personal history of nicotine dependence

== ENCOUNTER 2017-09-14 08:09 | Day surgery (SDC) | payer BC, OTHER ==
[~2017-09-14 08:09] MED LIST: RINGER'S SOLUTION,LACTATED 1,000 ML IV PRN
[2017-09-14 08:24] LABS: Hematocrit 35.3 % (37.0-47.0); Hemoglobin 11.3 gm/dL (12.5-16.0); Mean Cell Volume 81.9 fl (78-100); Mean Corpuscular Hemoglobin 26.2 pg (27-31); Mean Platelet Volume 9.1 fl (6.0-9.5); Neutrophil # 7.5 K/mm3 (1.3-6.0); Neutrophil % 68.7 % (42-75.0); Platelet Count 293 K/mm3 (150-450); Red Blood Count 4.31 M/mm3 (4.2-5.4); Red Cell Distribution Width 15.5 % (11.5-14.0); White Blood Count 10.9 K/mm3 (4.0-10.5)
[2017-09-14] MEDS ORDERED: RINGER'S SOLUTION,LACTATED 1,000 ML IV ONE (09:00)
[2017-09-14] MEDS ORDERED: IBUPROFEN 600 MG TABLET PO PRN (09:52)
--- NOTE | 2017-09-14 10:22 | OR ---
Operative Report - Dictated Report Narrative: Operative Report 09/14/17 Hysteroscopy Dilatation and Curettage Preoperative Diagnosis: Postmenopausal Bleeding Postoperative Diagnosis: Postmenopausal Bleeding, Endometrial Polyp, Endocervical Polyp Procedure: Hysteroscopy Dilatation and Curettage Surgeon: Roslyn Castanon M.D. Anesthesia: Billy Hinojosa CRNA, IV sedation Findings: Uterine sound with hysteroscope 9 cm. There was an endometrial polyp on the left cornual angle approximately 2.5 cm in length. There was an endocervical polyp just below the external cervical os removed as well. Fluids: 300 ml EBL: Minimal Drains: None Complications: None Condition: Stable Pathology: Endometrial currettings, Endometrial polyp, Endocervical polyp Procedure: The patient was taken to the operating room with IV fluids running. She was placed in the dorsal lithotomy position after anesthesia was induced. A bivalve speculum was placed in the vagina. The anterior lip of the cervix was grasped with a single-tooth tenaculum. 2.5 mm hysteroscope was introduced into the endocervical canal and used to navigate into the endometrium. Uterine sound was 9 cm measured with hysteroscope. The cervix was dilated with Leobardo dilators. The hysteroscope was introduced into the endometrial cavity. The cavity was distended with normal saline. There was a 2.5 peduculated endometrial polyp in the left cornua that was dissected with alligator graspers and removed completely.Ostia were visualized bilaterally. There was otherwise very little tissue noted on the endometrium. The hysteroscope was removed. The cavity was sharply curetted without difficulty. The hysteroscope was once again introduced into the cavity. The cavity was completely curetted. The hysteroscope was removed. The single-tooth tenaculum was removed. Sites were hemostatic. The speculum was removed from the vagina. Sponge counts were correct 2. The patient tolerated the procedure well.
[2017-09-14 11:29] VITALS: BP 144/77
== END 2017-09-14 08:10 | disposition home or self-care (01) ==
LOC: AMB 08:09
PROVIDERS: ATTEND Obstetrics & Gynecology
PROC: 0UJD8ZZ Inspection of Uterus and Cervix, Via Natural or Artificial Opening Endoscopic (ICD-10-PCS; 2017-09-14)
PROC: 0UDB7ZX Extraction of Endometrium, Via Natural or Artificial Opening, Diagnostic (ICD-10-PCS; principal; 2017-09-14 09:15)
DX: N84.0 Polyp of corpus uteri (principal); N84.1 Polyp of cervix uteri; N95.0 Postmenopausal bleeding; E11.9 Type 2 diabetes mellitus without complications; E78.5 Hyperlipidemia, unspecified; K21.9 Gastro-esophageal reflux disease without esophagitis; E03.9 Hypothyroidism, unspecified; F32.9 Major depressive disorder, single episode, unspecified; M79.7 Fibromyalgia; E66.9 Obesity, unspecified; Z68.37 Body mass index [BMI] 37.0-37.9, adult; Z87.891 Personal history of nicotine dependence

== ENCOUNTER 2017-10-29 09:25 | Day surgery (SDC) | payer BC, OTHER ==
[~2017-10-29 09:25] MED LIST changes: +ceFAZolin SODIUM 1 GM VIAL IV PRN
[2017-10-29] MEDS ORDERED: BUPIVACAINE HCL 50 ML VIAL IJ ONE (10:25)
--- NOTE | 2017-10-29 10:43 | POSTOP NO ---
Date of Surgery: 10/29/17 Patient Tolerated the Procedure: Well Post Operative Diagnosis/Procedures: Assistant Construction Superintendent: Srikanth Mallory PA-C Post-operative Diagnosis: Left carpal tunnel syndrome Finding: Above Procedure: Left endoscopic carpal tunnel release Estimated Blood Loss: minimal Specimens: None
--- NOTE | 2017-10-29 10:44 | OR ---
Operative Report - Dictated Report Narrative: Date: 10/29/2017 Physician: London Bird M.D. Financial Recording Clerk: Srikanth Mallory PA-C Preoperative diagnosis: Left carpal tunnel syndrome Postoperative diagnosis: Left carpal tunnel syndrome Procedure: Endoscopic left carpal tunnel release Anesthesia: MAC plus local Complications: None Estimated blood loss: Minimal Tourniquet time: 8 Minutes at 250 mmHg Specimens: None Retained implants: None Drains: None Indications: Mrs. Rosas Is a 52-year-old female who has been followed in my clinic with complaints of carpal tunnel syndrome. Physical exam as well as diagnostic testing showed compression of the median nerve compatible with carpal tunnel syndrome. Conservative measures have failed including but not limited to activity modification, medications, and/or bracing. The risks, benefits, and alternatives were discussed in clinic. The risks being bleeding, infection, nerve, tendon, blood vessel injury, persistent pain, wound competitions, weakness, palm pain, need for additional procedures, and persistent symptoms. Consent was obtained in the clinic. Procedure: After marking the correct extremity in the preoperative holding area, a timeout was performed in the operating room. IV antibiotics consisting of Ancef were administered prior to the procedure. A well-padded tourniquet was applied to the operative upper arm. The arm was then prepped and draped in a standard sterile fashion. The arm was exsanguinated and the tourniquet was inflated to 250 mmHg. 0.5% Marcaine without epinephrine was infused into the projected portal sites. Using Loupe magnification, a transverse incision was made in the proximal wrist flexion crease just ulnar to the ulnar to the palmaris longus tendon or in line with approximately the ring finger. Blunt dissection and hemostasis with bipolar cautery was utilized down to the forearm fascia. The forearm fascia was split longitudinally just ulnar to the palmaris longus exposing the entry into the carpal tunnel. A Bapchule was placed under the transverse carpal ligament elevating the soft tissues under the dorsal aspect of the transverse carpal ligament. This was confirmed to be under the transverse carpal ligament based on the corrugated nature of the tissue. Once we had removed soft tissues from the transverse carpal ligament, a blunt trocar and cannula was introduced under the transverse carpal ligament exiting the palm through a xavier incision. The hand was then placed in a extension holding device and the camera was introduced into the cannula. A probe was utilized in order to ensure that all soft tissues were elevated off the dorsal aspect of the transverse carpal ligament and ensuring that all tissues were running transversely. No vascular or neurologic tissues were visualized. The push, followed by probe, followed by hook blades was utilized to transect the distal one half of the transverse carpal ligament. This allowed for ingress of fat. The camera was then placed distally looking proximally, and the proximal one half of the transverse carpal ligament was transected using the hook blade. This again allowed for ingress of fat. The probe blade was utilized in order to release any additional remaining fibers. Once it was felt that the transverse carpal ligament was completely transected, the blunt trocar was reintroduced into the trocar and removed in whole. A Ragnell was utilized in order to visualize the carpal tunnel ensuring that the transverse carpal ligament was completely released using a Bapchule. The distal forearm fascia was released ensuring that the median nerve was completely decompressed utilizing tenotomy scissors. Once it was felt that all the tissues overlying the median nerve were completely released, the wounds were thoroughly irrigated with saline which passed freely from the proximal to distal portal holes. Tourniquet was deflated and hemostasis was obtained with pressure as well as bipolar cautery. Once bleeding had resolved and there was no excessive bleeding , the wounds were closed with interrupted nylon. Xeroform, 4 x 4's, soft roll, and a well-padded dorsal short arm wrist splint was applied, and the patient was awoken and transferred to the postanesthesia care unit in stable condition. All sponge, needle, blade, and instrument counts were correct prior to closing the wounds. Additional 0.5% Marcaine without epinephrine was infused into the skin edges for pain control.
[2017-10-29 11:51] VITALS: BP 123/65
== END 2017-10-29 09:26 | disposition home or self-care (01) ==
LOC: AMB 09:25
PROVIDERS: ATTEND Orthopaedic Surgery
PROC: 01N54ZZ Release Median Nerve, Percutaneous Endoscopic Approach (ICD-10-PCS; principal; 2017-10-29 11:50)
DX: G56.02 Carpal tunnel syndrome, left upper limb (principal); E11.9 Type 2 diabetes mellitus without complications; E78.5 Hyperlipidemia, unspecified; E03.9 Hypothyroidism, unspecified; K21.9 Gastro-esophageal reflux disease without esophagitis; M79.7 Fibromyalgia; F32.9 Major depressive disorder, single episode, unspecified; E66.9 Obesity, unspecified; Z68.37 Body mass index [BMI] 37.0-37.9, adult; Z87.891 Personal history of nicotine dependence